=== PATIENT | male | born 1965 | race Caucasian/White ===

== ENCOUNTER 2017-10-16 12:30 | Day surgery (SDC) | payer MEDICARE, OTHER ==
[~2017-10-16 12:30] MED LIST: ? BP MED PO; ACET325 PO; ACET500 PO; ACID REDUCER 1150 MG PO; ALBU90OI61 INH; ANTIDEPRESSANT PO; BENZ100A PO; CEFU500; CEFUROXIME PO; CIPR500 PO; CYCL10 PO; Ceftin500 MG; DIPATR; DIPATR PO; FAMO20 PO; FERR325 PO; GUAI600T33 PO; HYDACE5 PO; HYDR1TAB94 PO; META800 PO; METO10 PO; METO25 PO; NITR100CA PO; OXYACE5T PO; PANT40 PO; PRED10 PO; PROBIOTIC1 EACH; PROM25 PO; Prilosec Otc20 MG PO; RANI150; RANI150 PO; RANITIDINE PO; SERT25 PO; TRAM50 PO; TRAMADOL PO; VALA500 PO
[2018-07-09] MEDS ORDERED: TRAM50 PO (14:44)
[2018-09-08] MEDS ORDERED: LEVFLO500 PO (17:05)
[2018-09-08] MEDS ORDERED: OXYC5 (17:23)
[2018-09-08] MEDS ORDERED: Lomotil Tablet1 EACH PO (17:24)
[2018-09-08] MEDS ORDERED: ACID REDUCER 1150 MG (17:24)
[2018-09-08] MEDS ORDERED: Prinivil10 MG PO (17:24)
== END 2017-10-16 12:35 | disposition home or self-care (01) ==
LOC: WOUND 12:30
DX: Z48.00 Encounter for change or removal of nonsurgical wound dressing (principal); L89.324 Pressure ulcer of left buttock, stage 4; L89.314 Pressure ulcer of right buttock, stage 4; Q05.9 Spina bifida, unspecified; F17.218 Nicotine dependence, cigarettes, with other nicotine-induced disorders; G82.22 Paraplegia, incomplete; E46 Unspecified protein-calorie malnutrition
CPT/HCPCS: G0463

== ENCOUNTER → 2017-11-25 | Outpatient (CLI) | payer MEDICARE, OTHER ==
[~2017-11-25] MED LIST changes: +ACID REDUCER 1150 MG; +LEVFLO500 PO; +Lomotil Tablet1 EACH PO; +OXYC5; +Prinivil10 MG PO
== END | disposition home or self-care (01) ==
LOC: LAB 10:15
DX: S31.809A Unspecified open wound of unspecified buttock, initial encounter (principal); S38.1XXA Crushing injury of abdomen, lower back, and pelvis, initial encounter
CPT/HCPCS: 87070; 87075; 87077; 87147; 87186; 87205

== ENCOUNTER 2018-10-01 07:34 | Day surgery (SDC) | payer MEDICARE, OTHER | END 2018-10-01 22:39 | disposition home or self-care (01) | LOC: WOUND 07:34 | DX: Z48.00 Encounter for change or removal of nonsurgical wound dressing (principal); L89.314 Pressure ulcer of right buttock, stage 4; L89.324 Pressure ulcer of left buttock, stage 4; Q05.9 Spina bifida, unspecified; G82.22 Paraplegia, incomplete | CPT/HCPCS: G0463 ==

== ENCOUNTER 2018-10-18 13:44 | Day surgery (SDC) | payer MEDICARE, OTHER | END 2018-10-18 22:49 | disposition home or self-care (01) | LOC: WOUND 13:44 | DX: L89.314 Pressure ulcer of right buttock, stage 4 (principal); L89.324 Pressure ulcer of left buttock, stage 4; Q05.9 Spina bifida, unspecified; G82.22 Paraplegia, incomplete; F17.218 Nicotine dependence, cigarettes, with other nicotine-induced disorders; I10 Essential (primary) hypertension; E78.5 Hyperlipidemia, unspecified ==

== ENCOUNTER 2018-10-25 13:32 | Day surgery (SDC) | payer MEDICARE, OTHER | END 2018-10-25 23:01 | disposition home or self-care (01) | LOC: WOUND 13:32 | DX: L89.314 Pressure ulcer of right buttock, stage 4 (principal); L89.324 Pressure ulcer of left buttock, stage 4; Q05.9 Spina bifida, unspecified; G82.22 Paraplegia, incomplete; F17.218 Nicotine dependence, cigarettes, with other nicotine-induced disorders; I10 Essential (primary) hypertension; E78.5 Hyperlipidemia, unspecified; J43.9 Emphysema, unspecified; G89.4 Chronic pain syndrome ==

== ENCOUNTER 2018-11-16 00:14 | Day surgery (SDC) | payer MEDICARE, OTHER | END 2018-11-16 22:46 | disposition home or self-care (01) | LOC: WOUND 00:14 | DX: L89.314 Pressure ulcer of right buttock, stage 4 (principal); L89.324 Pressure ulcer of left buttock, stage 4; Q05.9 Spina bifida, unspecified; G82.22 Paraplegia, incomplete; F17.218 Nicotine dependence, cigarettes, with other nicotine-induced disorders | CPT/HCPCS: G0463 ==

== ENCOUNTER 2018-12-08 00:16 | Day surgery (SDC) | payer MEDICARE, OTHER | END 2018-12-08 22:48 | disposition home or self-care (01) | LOC: WOUND 00:16 | DX: L89.314 Pressure ulcer of right buttock, stage 4 (principal); L89.324 Pressure ulcer of left buttock, stage 4; Q05.9 Spina bifida, unspecified; G82.22 Paraplegia, incomplete; F17.218 Nicotine dependence, cigarettes, with other nicotine-induced disorders; I10 Essential (primary) hypertension; E78.5 Hyperlipidemia, unspecified; G89.4 Chronic pain syndrome; G47.30 Sleep apnea, unspecified; M19.90 Unspecified osteoarthritis, unspecified site; G62.9 Polyneuropathy, unspecified; D64.9 Anemia, unspecified ==

== ENCOUNTER 2018-12-31 00:48 | Day surgery (SDC) | payer MEDICARE, OTHER | END 2018-12-31 23:07 | disposition home or self-care (01) | LOC: WOUND 00:48 | DX: L89.314 Pressure ulcer of right buttock, stage 4 (principal); L89.324 Pressure ulcer of left buttock, stage 4; I10 Essential (primary) hypertension; E78.5 Hyperlipidemia, unspecified; Q05.9 Spina bifida, unspecified; G82.22 Paraplegia, incomplete; F17.218 Nicotine dependence, cigarettes, with other nicotine-induced disorders ==

== ENCOUNTER 2019-02-08 10:55 | Day surgery (SDC) | payer MEDICARE, OTHER | END 2019-02-08 22:46 | disposition home or self-care (01) | LOC: WOUND 10:55 | DX: L89.314 Pressure ulcer of right buttock, stage 4 (principal); L89.324 Pressure ulcer of left buttock, stage 4; Q05.9 Spina bifida, unspecified; G82.22 Paraplegia, incomplete; I10 Essential (primary) hypertension; D64.9 Anemia, unspecified; G47.30 Sleep apnea, unspecified; F17.218 Nicotine dependence, cigarettes, with other nicotine-induced disorders ==

== ENCOUNTER 2019-03-07 11:02 | Day surgery (SDC) | payer MEDICARE, OTHER ==
[~2019-03-07 11:02] MED LIST changes: +OLME20 PO; +TELM40 PO
== END 2019-03-07 22:52 | disposition home or self-care (01) ==
LOC: WOUND 11:02
DX: L89.314 Pressure ulcer of right buttock, stage 4 (principal); L89.324 Pressure ulcer of left buttock, stage 4; Q05.9 Spina bifida, unspecified; G82.22 Paraplegia, incomplete; D64.9 Anemia, unspecified; G47.30 Sleep apnea, unspecified; I10 Essential (primary) hypertension; F17.218 Nicotine dependence, cigarettes, with other nicotine-induced disorders
CPT/HCPCS: G0463

== ENCOUNTER 2019-04-12 07:45 | Day surgery (SDC) | payer MEDICARE, OTHER | END 2019-04-12 23:10 | disposition home or self-care (01) | LOC: WOUND 07:45 | DX: L89.314 Pressure ulcer of right buttock, stage 4 (principal); L89.324 Pressure ulcer of left buttock, stage 4; Q05.9 Spina bifida, unspecified; G82.22 Paraplegia, incomplete; F17.218 Nicotine dependence, cigarettes, with other nicotine-induced disorders; D64.9 Anemia, unspecified; I10 Essential (primary) hypertension; M19.90 Unspecified osteoarthritis, unspecified site; G47.30 Sleep apnea, unspecified; K52.9 Noninfective gastroenteritis and colitis, unspecified; G62.9 Polyneuropathy, unspecified ==

== ENCOUNTER 2019-05-09 00:16 | Day surgery (SDC) | payer MEDICARE, OTHER | END 2019-05-09 22:51 | disposition home or self-care (01) | LOC: WOUND 00:16 | DX: L89.314 Pressure ulcer of right buttock, stage 4 (principal); L89.324 Pressure ulcer of left buttock, stage 4; F17.218 Nicotine dependence, cigarettes, with other nicotine-induced disorders; D72.829 Elevated white blood cell count, unspecified; R70.0 Elevated erythrocyte sedimentation rate; Q05.9 Spina bifida, unspecified; G82.22 Paraplegia, incomplete; I10 Essential (primary) hypertension; E78.5 Hyperlipidemia, unspecified; G89.4 Chronic pain syndrome | CPT/HCPCS: G0463 ==

== ENCOUNTER 2019-06-21 00:25 | Day surgery (SDC) | payer MEDICARE, OTHER | END 2019-06-21 22:49 | disposition home or self-care (01) | LOC: WOUND 00:25 | DX: L89.314 Pressure ulcer of right buttock, stage 4 (principal); L89.324 Pressure ulcer of left buttock, stage 4; F17.218 Nicotine dependence, cigarettes, with other nicotine-induced disorders; D72.829 Elevated white blood cell count, unspecified; R70.0 Elevated erythrocyte sedimentation rate; Q05.9 Spina bifida, unspecified; G82.22 Paraplegia, incomplete ==

== ENCOUNTER → 2019-07-01 | Outpatient (CLI) | payer MEDICARE, OTHER ==
[2019-07-01 20:02] LABS: BASOPHILS ABSOLUTE AUTO 0.08 K/mm3 (0.00-0.23); BASOPHILS PERCENT AUTO 1 % (0-2); EOSINOPHILS ABSOLUTE AUTO 0.08 K/mm3 (0.00-0.68); EOSINOPHILS PERCENT AUTO 1 % (0-6); Hematocrit 39.5 % (37.0-53.0); Hemoglobin 12.4 g/dL (13.5-17.5); IMMATURE GRAN ABSOLUTE AUTO 0.03 K/mm3 (0.00-0.10); IMMATURE GRAN PERCENT AUTO 0 % (0-1); LYMPHOCYTES ABSOLUTE AUTO 2.95 K/mm3 (0.84-5.20); LYMPHOCYTES PERCENT AUTO 27 % (21-46); MONOCYTES ABSOLUTE AUTO 0.61 K/mm3 (0.16-1.47); MONOCYTES PERCENT AUTO 6 % (4-13); Mean Corpuscular HGB 26.7 pg (26.0-34.0); Mean Corpuscular HGB Conc 31.4 g/dL (31.5-36.5); Mean Corpuscular Volume 85 fL (80-100); Mean Platelet Volume 11.2 fL (9.1-12.4); NEUTROPHILS ABSOLUTE AUTO 7.32 K/mm3 (1.96-9.15); NEUTROPHILS PERCENT AUTO 66 % (41-73); Platelet Count 274 K/mm3 (150-400); RDW Coefficient Variation 16.9 % (11.7-14.2); RDW Standard Deviation 52.4 fL (35.1-46.3); Red Blood Cell Count 4.65 M/mm3 (4.30-5.90); White Blood Cell Count 11.07 K/mm3 (4.00-11.30)
== END | disposition home or self-care (01) ==
LOC: LAB 10:45 → LAB SHORT 10:45
PROVIDERS: Nurse Practitioner Family
DX: L89.314 Pressure ulcer of right buttock, stage 4 (principal); D72.829 Elevated white blood cell count, unspecified; L89.324 Pressure ulcer of left buttock, stage 4; R70.0 Elevated erythrocyte sedimentation rate
CPT/HCPCS: 85025; 87070; 87075; 87205

== ENCOUNTER 2019-07-26 00:09 | Day surgery (SDC) | payer MEDICARE, OTHER | END 2019-07-26 22:42 | disposition home or self-care (01) | LOC: WOUND 00:09 | DX: I96 Gangrene, not elsewhere classified (principal); L89.314 Pressure ulcer of right buttock, stage 4; L89.324 Pressure ulcer of left buttock, stage 4; Q05.9 Spina bifida, unspecified; G82.22 Paraplegia, incomplete; D72.829 Elevated white blood cell count, unspecified; F17.218 Nicotine dependence, cigarettes, with other nicotine-induced disorders; I10 Essential (primary) hypertension; E78.5 Hyperlipidemia, unspecified; J43.9 Emphysema, unspecified; G89.4 Chronic pain syndrome; G47.30 Sleep apnea, unspecified; D64.9 Anemia, unspecified; M19.90 Unspecified osteoarthritis, unspecified site; G62.9 Polyneuropathy, unspecified; Z79.899 Other long term (current) drug therapy; Z79.51 Long term (current) use of inhaled steroids ==

== ENCOUNTER 2019-08-09 10:57 | Day surgery (SDC) | payer MEDICARE, OTHER | END 2019-08-09 22:43 | disposition home or self-care (01) | LOC: WOUND 10:57 | DX: L89.324 Pressure ulcer of left buttock, stage 4 (principal); L89.314 Pressure ulcer of right buttock, stage 4; F17.218 Nicotine dependence, cigarettes, with other nicotine-induced disorders; D72.829 Elevated white blood cell count, unspecified; R70.0 Elevated erythrocyte sedimentation rate; Q05.9 Spina bifida, unspecified; G82.22 Paraplegia, incomplete; I10 Essential (primary) hypertension; E78.5 Hyperlipidemia, unspecified; J43.9 Emphysema, unspecified; G89.4 Chronic pain syndrome; Z79.899 Other long term (current) drug therapy ==

== ENCOUNTER → 2019-08-16 | Outpatient (CLI) | payer MEDICARE, OTHER ==
[2019-08-16 13:28] LABS: Source, Urine Clean Catch
[2019-08-16 16:57] LABS: Bilirubin, Urine Neg (Neg); Blood, Urine 3+ (Neg); Glucose Qualitative, Urine Neg (Neg); Ketones, Urine 1+ (Neg); Leukocyte Esterase, Urine 3+ (Neg); Nitrite, Urine Neg (Neg); Protein, Urine 2+ (Neg); Urobilinogen, Urine NORM (Normal); pH, Urine 6.5 (5.0-8.0)
[2019-08-16 17:07] LABS: Appearance, Urine Cloudy (Clear); Color, Urine Pale Yellow (P-Yellow); White Blood Cells, Urine TNTC /hpf (0-5)
[2019-08-16 17:08] LABS: Bacteria Many /hpf; Squamous Epithelial Cells Not Seen /hpf (Few)
[2019-08-16 18:10] LABS: Thyroid Stimulating Hormone 0.672 uIU/mL (0.360-4.800)
== END | disposition home or self-care (01) ==
LOC: LAB SHORT 13:25 → OLS 13:25 → LAB FUT 08-11 15:10
PROVIDERS: Internal Medicine; Physician Assistant
DX: N39.0 Urinary tract infection, site not specified (principal); D50.9 Iron deficiency anemia, unspecified; D51.8 Other vitamin B12 deficiency anemias; R53.81 Other malaise
CPT/HCPCS: 36415; 81001; 82607; 82746; 84443; 87077; 87086; 87186

== ENCOUNTER 2019-08-29 14:04 | Day surgery (SDC) | payer MEDICARE, OTHER | END 2019-08-29 23:07 | disposition home or self-care (01) | LOC: WOUND 14:04 | DX: I96 Gangrene, not elsewhere classified (principal); L89.324 Pressure ulcer of left buttock, stage 4; L89.314 Pressure ulcer of right buttock, stage 4; G82.20 Paraplegia, unspecified; Q05.9 Spina bifida, unspecified; F17.210 Nicotine dependence, cigarettes, uncomplicated; I10 Essential (primary) hypertension; E78.5 Hyperlipidemia, unspecified; J43.9 Emphysema, unspecified; G89.4 Chronic pain syndrome; M19.90 Unspecified osteoarthritis, unspecified site; G62.9 Polyneuropathy, unspecified; Z96.0 Presence of urogenital implants; Z79.51 Long term (current) use of inhaled steroids; Z79.899 Other long term (current) drug therapy ==

== ENCOUNTER 2019-09-14 11:02 | Day surgery (SDC) | payer MEDICARE, OTHER | END 2019-09-14 22:50 | disposition home or self-care (01) | LOC: WOUND 11:02 | DX: L89.314 Pressure ulcer of right buttock, stage 4 (principal); L89.324 Pressure ulcer of left buttock, stage 4; F17.218 Nicotine dependence, cigarettes, with other nicotine-induced disorders; Q05.9 Spina bifida, unspecified; G82.22 Paraplegia, incomplete; I10 Essential (primary) hypertension; G89.4 Chronic pain syndrome; E78.5 Hyperlipidemia, unspecified; J43.9 Emphysema, unspecified; Z79.899 Other long term (current) drug therapy ==

== ENCOUNTER 2019-10-07 00:35 | Day surgery (SDC) | payer MEDICARE, OTHER | END 2019-10-07 23:24 | disposition home or self-care (01) | LOC: WOUND 00:35 | DX: L89.314 Pressure ulcer of right buttock, stage 4 (principal); L89.324 Pressure ulcer of left buttock, stage 4; Q05.9 Spina bifida, unspecified; G82.22 Paraplegia, incomplete; I10 Essential (primary) hypertension; E78.5 Hyperlipidemia, unspecified; J43.9 Emphysema, unspecified; G89.4 Chronic pain syndrome; F17.218 Nicotine dependence, cigarettes, with other nicotine-induced disorders; Z88.0 Allergy status to penicillin; Z88.2 Allergy status to sulfonamides; Z91.041 Radiographic dye allergy status; Z79.899 Other long term (current) drug therapy | CPT/HCPCS: G0463 ==

== ENCOUNTER 2019-11-04 02:21 | Day surgery (SDC) | payer MEDICARE, OTHER | END 2019-11-04 23:51 | disposition home or self-care (01) | LOC: WOUND 02:21 | DX: L89.314 Pressure ulcer of right buttock, stage 4 (principal); L89.324 Pressure ulcer of left buttock, stage 4; F17.218 Nicotine dependence, cigarettes, with other nicotine-induced disorders; Q05.9 Spina bifida, unspecified; G82.22 Paraplegia, incomplete; J43.9 Emphysema, unspecified; E78.5 Hyperlipidemia, unspecified; I10 Essential (primary) hypertension; G89.4 Chronic pain syndrome; Z79.899 Other long term (current) drug therapy | CPT/HCPCS: G0463 ==

== ENCOUNTER 2019-12-02 01:30 | Day surgery (SDC) | payer MEDICARE, OTHER | END 2019-12-02 23:23 | disposition home or self-care (01) | LOC: WOUND 01:30 | DX: L89.314 Pressure ulcer of right buttock, stage 4 (principal); L89.324 Pressure ulcer of left buttock, stage 4; F17.218 Nicotine dependence, cigarettes, with other nicotine-induced disorders; Q05.9 Spina bifida, unspecified; G82.22 Paraplegia, incomplete; I10 Essential (primary) hypertension; E78.5 Hyperlipidemia, unspecified; J43.9 Emphysema, unspecified; G89.4 Chronic pain syndrome; Z79.899 Other long term (current) drug therapy ==

== ENCOUNTER 2020-02-03 00:27 | Day surgery (SDC) | payer OTHER | END 2020-02-03 23:02 | disposition home or self-care (01) | LOC: WOUND 00:27 | DX: L89.314 Pressure ulcer of right buttock, stage 4 (principal); L89.324 Pressure ulcer of left buttock, stage 4; F17.218 Nicotine dependence, cigarettes, with other nicotine-induced disorders; Q05.9 Spina bifida, unspecified; G82.22 Paraplegia, incomplete; Z79.899 Other long term (current) drug therapy; I10 Essential (primary) hypertension; G47.30 Sleep apnea, unspecified ==

== ENCOUNTER 2020-08-21 13:53 | Inpatient (IN) | payer OTHER ==
[~2020-08-21] VITALS: Ht 162.6 cm; Wt 63.5 kg
[~2020-08-21 13:53] MED LIST changes: -ALBU90OI61 INH; -OXYC5
[2020-08-21 14:29] LABS: Source, Urine Clean Catch
[2020-08-21 14:53] LABS: BASOPHILS ABSOLUTE AUTO 0.06 K/mm3 (0.00-0.23); BASOPHILS PERCENT AUTO 1 % (0-2); EOSINOPHILS ABSOLUTE AUTO 0.05 K/mm3 (0.00-0.68); EOSINOPHILS PERCENT AUTO 0 % (0-6); Hematocrit 28.1 % (37.0-53.0); Hemoglobin 8.9 g/dL (13.5-17.5); IMMATURE GRAN ABSOLUTE AUTO 0.13 K/mm3 (0.00-0.10); IMMATURE GRAN PERCENT AUTO 1 % (0-1); LYMPHOCYTES PERCENT AUTO 20 % (21-46); MONOCYTES PERCENT AUTO 6 % (4-13); Mean Corpuscular HGB 27.1 pg (26.0-34.0); Mean Corpuscular HGB Conc 31.7 g/dL (31.5-36.5); Mean Corpuscular Volume 85 fL (80-100); Mean Platelet Volume 11.4 fL (9.1-12.4); NEUTROPHILS ABSOLUTE AUTO 8.68 K/mm3 (1.96-9.15); NEUTROPHILS PERCENT AUTO 72 % (41-73); Platelet Count 360 K/mm3 (150-400); RDW Coefficient Variation 16.7 % (11.7-14.2); RDW Standard Deviation 51.7 fL (35.1-46.3); Red Blood Cell Count 3.29 M/mm3 (4.30-5.90); White Blood Cell Count 12.02 K/mm3 (4.00-11.30)
[2020-08-21 15:20] LABS: Appearance, Urine Cloudy (Clear); Bilirubin, Urine Neg (Neg); Blood, Urine 3+ (Neg); Color, Urine Yellow (P-Yellow); Glucose Qualitative, Urine Neg (Neg); Ketones, Urine Neg (Neg); Leukocyte Esterase, Urine 3+ (Neg); Nitrite, Urine Pos (Neg); Protein, Urine 2+ (Neg); Specific Gravity, Urine 1.015 (1.003-1.022); Urobilinogen, Urine 1+ (Normal)
[2020-08-21 15:20] LABS: Alanine Aminotransfer (ALT/SGP 20 U/L (12-78); Albumin, Blood 2.5 g/dL (3.4-5.0); Albumin/Globulin Ratio 0.5 (0.8-1.8); Alk Phos 255 U/L (50-136); Anion Gap 9 mmol/L (6-16); Aspartate Aminotrans (AST/SGOT 20 U/L (12-37); Bilirubin, Total 0.8 mg/dL (0.1-1.0); Blood Urea Nitrogen 22 mg/dL (8-24); Bun/Creatinine Ratio 18.2 (12.0-20.0); CO2, Blood 20 mmol/L (21-32); Calcium, Blood 9.3 mg/dL (8.5-10.1); Chloride, Blood 111 mmol/L (98-108); Creatinine, Blood 1.21 mg/dL (0.60-1.20); Glomerular Filtration Rate >60 (60-); Glucose, Blood 102 mg/dL (70-99); Potassium, Blood 3.9 mmol/L (3.5-5.5); Sodium, Blood 140 mmol/L (136-145); Total Protein, Blood 7.5 g/dL (6.4-8.2); Troponin I <0.015 ng/mL (0.000-0.040)
[2020-08-21 15:45] LABS: Mucus Mod (0-Heavy)
[2020-08-21 15:46] LABS: Triple Phosphate Crystals Mod /hpf
[2020-08-21 15:47] LABS: Bacteria Many /hpf; Squamous Epithelial Cells Rare /hpf (Few)
[2020-08-21] MEDS ORDERED: ALBU2.5V5 NEB (20:38)
[2020-08-21] MEDS ORDERED: TRAM50 PO (20:38)
[2020-08-21] MEDS ORDERED: OXYC5 PO (20:39)
[2020-08-21] MEDS ORDERED: TIOT18 INH (20:40)
[2020-08-21 22:19] LABS: CPK Creatine Kinase 31 U/L (39-308); Troponin I <0.015 ng/mL (0.000-0.040)
[2020-08-21 23:16] LABS: Influenza A, PCR Negative (NEGATIVE); Influenza B, PCR Negative (NEGATIVE); Resp Syncytial Virus, PCR Negative (NEGATIVE); SARS-Cov-2 (COVID-19) PCR, MMC Negative (NEGATIVE)
--- NOTE | 2020-08-21 23:30 | NUR ---
RECEIVED REPORT FROM ALBERT VELOZ RN. PT TRANSPORTED TO MEDICAL FLOOR VIA GURNEY, SELF-TRANSFERRED TO BED WITH SBA. PT ORIENTED TO ROOM, UNIT. VS TAKEN. PT IN NO ACUTE DISTRESS, C/O CP, BACK PAIN, DESCRIBES IT "BEING ON FIRE." PT MEDICATED FOR PAIN PER EMAR. PT SITUATED IN ROOM. CALL LIGHT, POSSESSIONS IN REACH, BED IN LOW POSITION WITH ALARMS ON. WCTM.
--- NOTE | 2020-08-22 01:45 | NUR ---
THIS RN NOTIFIED OF ORDER FOR PT TO RECEIVE CT SCAN. THIS RN AND [employer] ATTENDANT TRANSPORTED PT TO CT SCAN, PT REPORTED ALLERGY TO IODINE, UNSURE OF REACTION OR ITS SEVERITY. CALLED DR. BATRES TO INFORM OF FINDINGS, STATED TO THIS RN TO MEDICATE PT AFTER PROCEDURE. ASA HODGES, HAND SCREEN PRINTER, REQUESTING TO SPEAK TO DR. BATRES REGARDING PT ALLERGY, AND STATED HE WOULD NOT DO THE SCAN ON PT D/T REPORTED ALLERGY, UNLESS PT WAS PRE-MEDICATED. SPOKE TO GISEL REGARDING ALTERNATIVE TEST OPTIONS, SUCH A V/Q SCAN. GISEL ENTERING ORDERS INTO ULURU. CONTINUE TO MONITOR.
--- NOTE | 2020-08-22 03:04 | NUR ---
LATE-ENTRY- PT PRE-MEDICATED AT [address] SCAN WITH CONTRAST. THIS RN SPEAKING TO CLINICAL COORDINATOR, BARBIE FAUSTIN REGARDING PREPARATION FOR PTS WHO HAVE HX ALLERGY TO IODINE. THIS RN THEN SPOKE TO ASA HODGES EpiEP, REGARDING RECOMMENDATION FOR PREPARATION PRIOR TO PROCEDURE. RECOMMENDED PRE-MEDICATING 7-13 HOURS PRIOR, PER RADIOLOGIST RECOMMENDATION. THIS RN SPOKE TO DR. BATRES REGARDING CONVERSATION, ORDERS RECEIVED TO PERFORM CT SCAN NOW. THIS RN INFORMING ASA HODGES EpiEP, REGARDING ORDERS FROM DR. BATRES. STATED HE'D PERFORM CT SCAN BUT WOULD ALSO SPEAK TO RADIOLOGIST REGARDING PROCEDURE FOR PT'S WITH REPORTED IODINE ALLERGY.
--- NOTE | 2020-08-22 03:30 | NUR ---
PT TRANSPORTED TO CT, NO S/S REACTION NOTED FROM IV CONTRAST DYE. TOLERATED WELL.
[2020-08-22 05:24] LABS: BASOPHILS ABSOLUTE AUTO 0.04 K/mm3 (0.00-0.23); BASOPHILS PERCENT AUTO 0 % (0-2); EOSINOPHILS ABSOLUTE AUTO 0.05 K/mm3 (0.00-0.68); EOSINOPHILS PERCENT AUTO 1 % (0-6); Hematocrit 22.5 % (37.0-53.0); Hemoglobin 7.1 g/dL (13.5-17.5); IMMATURE GRAN ABSOLUTE AUTO 0.21 K/mm3 (0.00-0.10); IMMATURE GRAN PERCENT AUTO 2 % (0-1); LYMPHOCYTES ABSOLUTE AUTO 1.29 K/mm3 (0.84-5.20); LYMPHOCYTES PERCENT AUTO 12 % (21-46); MONOCYTES ABSOLUTE AUTO 0.32 K/mm3 (0.16-1.47); MONOCYTES PERCENT AUTO 3 % (4-13); Mean Corpuscular HGB 27.7 pg (26.0-34.0); Mean Corpuscular HGB Conc 31.6 g/dL (31.5-36.5); Mean Corpuscular Volume 88 fL (80-100); Mean Platelet Volume 11.6 fL (9.1-12.4); NEUTROPHILS ABSOLUTE AUTO 8.62 K/mm3 (1.96-9.15); NEUTROPHILS PERCENT AUTO 82 % (41-73); Platelet Count 295 K/mm3 (150-400); RDW Coefficient Variation 16.9 % (11.7-14.2); RDW Standard Deviation 54.4 fL (35.1-46.3); Red Blood Cell Count 2.56 M/mm3 (4.30-5.90); White Blood Cell Count 10.53 K/mm3 (4.00-11.30)
[2020-08-22 05:42] LABS: Alanine Aminotransfer (ALT/SGP 18 U/L (12-78); Albumin, Blood 2.1 g/dL (3.4-5.0); Albumin/Globulin Ratio 0.5 (0.8-1.8); Alk Phos 226 U/L (50-136); Anion Gap 8 mmol/L (6-16); Aspartate Aminotrans (AST/SGOT 18 U/L (12-37); Bilirubin, Total 0.4 mg/dL (0.1-1.0); Blood Urea Nitrogen 26 mg/dL (8-24); Bun/Creatinine Ratio 20.5 (12.0-20.0); CO2, Blood 19 mmol/L (21-32); CPK Creatine Kinase 34 U/L (39-308); Calcium, Blood 8.3 mg/dL (8.5-10.1); Chloride, Blood 110 mmol/L (98-108); Creatinine, Blood 1.27 mg/dL (0.60-1.20); Globulin, Blood 4.2 g/dL (2.2-4.0); Glomerular Filtration Rate >60 (60-); Glucose, Blood 114 mg/dL (70-99); Potassium, Blood 4.3 mmol/L (3.5-5.5); Sodium, Blood 137 mmol/L (136-145); Total Protein, Blood 6.3 g/dL (6.4-8.2); Troponin I <0.015 ng/mL (0.000-0.040)
--- NOTE | 2020-08-22 06:30 | NUR ---
SHIFT SUMMARY PT ASLEEP, FIANCEE AT THE BEDSIDE. PT RESTING COMFORTABLY AT THIS TIME, NO S/S ACUTE DISTRESS NOTED, RESPS E/U. DENIES CP. NO S/S ADVERSE REACTION FROM IV CONTRAST DYE. VS REVIEWED, 02 SATS STABLE. MEDICATED FOR PAIN WITH MEDS PER EMAR, WITH EFFECTIVE RELIEF. SPOKE TO GISEL REGARDING PT'S H&H THIS AM, NO NEW ORDERS RECEIVED. CONTINUE TO MONITOR AT THIS TIME. PT DENIES NEEDS. CALL LIGHT, POSSESSIONS IN REACH, BED IN LOW POSITION WITH ALARMS ON. WCTM, REPORT OFF TO ONCOMING RN.
[2020-08-22 14:40] LABS: Percent Saturation 21.2 % (20.0-50.0)
--- NOTE | 2020-08-22 17:40 | NUR ---
PATIENT A/OX4, CALM AND COOPERATIVE WITH CARE. HX OF SPINA BIFIDA, BUT IS ABLE TO REPOSITION SELF IN BED AND STAND WITH ASSIST. PROTONIX GTT CONTINUES. PATIENT TOLERATING REGULAR DIET. SMALL BROWN STOOL THIS AM. PATIENT HAS 2 LARGE TUNNELING WOUNDS TO BUTTOCKS, PICS ON CHART. CONSULTS TODAY BY DR. KEY FOR GI AND DR. VAZQUEZ FOR PULMONOLOGY. DR VAZQUEZ AT BEDSIDE THIS EVENING, PATIENT DOES NOT WANT BRONCHOSCOPY TOMORROW IT IS THANKSGIVING. PULMONOLOGY WILL FOLLOW UP TOMORROW FOR A FUTURE DATE TO EVALUATE LUNG MASS.
[2020-08-23 04:44] LABS: BASOPHILS ABSOLUTE AUTO 0.04 K/mm3 (0.00-0.23); BASOPHILS PERCENT AUTO 0 % (0-2); EOSINOPHILS ABSOLUTE AUTO 0.03 K/mm3 (0.00-0.68); EOSINOPHILS PERCENT AUTO 0 % (0-6); Hematocrit 23.9 % (37.0-53.0); Hemoglobin 7.8 g/dL (13.5-17.5); IMMATURE GRAN ABSOLUTE AUTO 0.36 K/mm3 (0.00-0.10); IMMATURE GRAN PERCENT AUTO 2 % (0-1); LYMPHOCYTES ABSOLUTE AUTO 3.44 K/mm3 (0.84-5.20); LYMPHOCYTES PERCENT AUTO 22 % (21-46); MONOCYTES ABSOLUTE AUTO 1.18 K/mm3 (0.16-1.47); MONOCYTES PERCENT AUTO 7 % (4-13); Mean Corpuscular HGB 27.7 pg (26.0-34.0); Mean Corpuscular HGB Conc 32.6 g/dL (31.5-36.5); Mean Corpuscular Volume 85 fL (80-100); Mean Platelet Volume 11.3 fL (9.1-12.4); NEUTROPHILS ABSOLUTE AUTO 10.94 K/mm3 (1.96-9.15); NEUTROPHILS PERCENT AUTO 68 % (41-73); Platelet Count 282 K/mm3 (150-400); RDW Coefficient Variation 18.2 % (11.7-14.2); RDW Standard Deviation 55.2 fL (35.1-46.3); Red Blood Cell Count 2.82 M/mm3 (4.30-5.90); White Blood Cell Count 15.99 K/mm3 (4.00-11.30)
[2020-08-23 05:19] LABS: Alanine Aminotransfer (ALT/SGP 15 U/L (12-78); Albumin, Blood 2.1 g/dL (3.4-5.0); Albumin/Globulin Ratio 0.5 (0.8-1.8); Alk Phos 211 U/L (50-136); Anion Gap 8 mmol/L (6-16); Aspartate Aminotrans (AST/SGOT 13 U/L (12-37); Bilirubin, Total 0.4 mg/dL (0.1-1.0); Blood Urea Nitrogen 28 mg/dL (8-24); Bun/Creatinine Ratio 21.9 (12.0-20.0); CO2, Blood 20 mmol/L (21-32); Calcium, Blood 8.9 mg/dL (8.5-10.1); Chloride, Blood 112 mmol/L (98-108); Creatinine, Blood 1.28 mg/dL (0.60-1.20); Globulin, Blood 4.1 g/dL (2.2-4.0); Glomerular Filtration Rate >60 (60-); Glucose, Blood 114 mg/dL (70-99); Magnesium, Blood 2.4 mg/dL (1.6-2.4); Potassium, Blood 4.2 mmol/L (3.5-5.5); Sodium, Blood 140 mmol/L (136-145); Total Protein, Blood 6.2 g/dL (6.4-8.2)
--- NOTE | 2020-08-23 06:44 | NUR ---
NURSE CARE MANAGER SUMMARY PT AAOX4 AND ABLE TO MAKE NEEDS KNOWN. BED REST DUE TO HX OF SPINABIFIDA WITH LITTLE TO NO USE OF BOTH LEGS. PT VERY EMOTIONAL AT START OF SHIFT DUE TO BEING TOLD THE RESULTS OF HIS CT SCAN THAT REVEALED POSS LUNG MASS WITH METS. PT MEDICATED FOR BACK PAIN MULTIPLE TIMES THROUGH THE NIGHT WITH FENTANYL WITH SOME RELIEF BUT PT REPORTS BACK SPASMS THAT ARE NEW FOR HIM. SPOKE WITH DR BATRES AND RECIEVED ORDER FOR IV VALIUM WHICH DID HELP WITH THE SPASMS FOR A WHILE. ALSO ASSISTED PT WITH USE OF K PAD ON BACK WHICH HE STATED DID HELP A BIT. PT MOSTLY PLEASANT BUT CAN GET VERY FRUSTRATED AND IRRITABLE AT TIMES. PT STATES "THATS JUST HOW I AM". VSS, WILL CONTINUE TO MONITOR.
--- NOTE | 2020-08-23 19:51 | NUR ---
END OF SHIFT SUMMARY: PATIENT REPORTED HIGH LEVELS OF PAIN THROUGHOUT THE SHIFT. PATIENT MEDICATED PER PRNS, UTILIZED HEAT PAD, AND WAS UP TO HIS WC TO ASSIST WITH ALLEVIATION OF PAIN. PATIENT COMPLAINED OF DIFFICULTY GETTING SPUTUM OUT. ENCOURAGED INCREASE IN PO FLUIDS OTHER THAN COFFEE. DISCUSSED COUGH WITH DR. FELIX. NEW ORDERS PLACED. FLUTTER VALVE AT BEDSIDE. PATIENT ABLE TO DEMONSTRATE USE OF. PATIENT SEEMS TO BE WILLING TO HAVE THE BRONCHOSCOPY TOMORROW. NO SIGNS OR SYMPTOMS OF ACUTE GI BLEED (NO NAUSEA/VOMITING, NO DARK STOOLS). PATIENT TOLERATING FOOD AND FLUIDS WITHOUT NAUSEA OR INCREASED DISCOMFORT. PATIENT IRRITABLE AT TIMES RELATED TO RECENT DIAGNOSIS. PROVIDED SUPPORT AND ENCOURAGEMENT.
[2020-08-24 05:31] LABS: BASOPHILS ABSOLUTE AUTO 0.06 K/mm3 (0.00-0.23); BASOPHILS PERCENT AUTO 1 % (0-2); EOSINOPHILS ABSOLUTE AUTO 0.19 K/mm3 (0.00-0.68); EOSINOPHILS PERCENT AUTO 2 % (0-6); Hematocrit 24.3 % (37.0-53.0); Hemoglobin 7.8 g/dL (13.5-17.5); IMMATURE GRAN ABSOLUTE AUTO 0.35 K/mm3 (0.00-0.10); IMMATURE GRAN PERCENT AUTO 3 % (0-1); LYMPHOCYTES ABSOLUTE AUTO 3.06 K/mm3 (0.84-5.20); LYMPHOCYTES PERCENT AUTO 24 % (21-46); MONOCYTES ABSOLUTE AUTO 0.87 K/mm3 (0.16-1.47); MONOCYTES PERCENT AUTO 7 % (4-13); Mean Corpuscular HGB 27.3 pg (26.0-34.0); Mean Corpuscular HGB Conc 32.1 g/dL (31.5-36.5); Mean Corpuscular Volume 85 fL (80-100); Mean Platelet Volume 11.1 fL (9.1-12.4); NEUTROPHILS ABSOLUTE AUTO 8.03 K/mm3 (1.96-9.15); NEUTROPHILS PERCENT AUTO 64 % (41-73); NRBC ABSOLUTE 0.02 K/mm3 (0.00-0.02); NRBC Auto 0.2 /100 WBC (0.0-0.2); Platelet Count 291 K/mm3 (150-400); RDW Coefficient Variation 18.3 % (11.7-14.2); RDW Standard Deviation 55.6 fL (35.1-46.3); Red Blood Cell Count 2.86 M/mm3 (4.30-5.90); White Blood Cell Count 12.56 K/mm3 (4.00-11.30)
[2020-08-24 05:54] LABS: Bun/Creatinine Ratio 21.6 (12.0-20.0); Calcium, Blood 8.6 mg/dL (8.5-10.1); Creatinine, Blood 1.39 mg/dL (0.60-1.20); Potassium, Blood 4.4 mmol/L (3.5-5.5)
--- NOTE | 2020-08-24 07:53 | NUR ---
08/24/20 0530 MEDICATED FOR BACK/ABDOMINAL DISCOMFORT PER NOV. NPO AT 0500 FOR PROCEDURE AT 1:30 PM TODAY. PT AWARE. PT CAN BE RUDE AT TIMES TOWARDS STAFF. UPSET WITH FREQUENT INTERUPTIONS AND ANGRY ABOUT NEW DX OF LUNG CANCER. VITALS STABLE. SELF CARES FOR UROSTOMY AND BAGS.
--- NOTE | 2020-08-24 08:27 | NUR ---
PT SLEEPING WAKES TO VERBAL STIMULI OFFERED PO TYLENOL PT REPORTED PAIN R/T INC PRODUCTIVE COUGH PT STATED THAT ALOT OF IT HE SWALLOWS PT SCHED FOR BROCH TODAY HELPED TO REPOSISTION TO HIS L SIDE PO MEDS GIVEN WITH SIP H2O
--- NOTE | 2020-08-24 10:39 | NUR ---
pain 7/10 50 mcg fent given
--- NOTE | 2020-08-24 11:41 | NUR ---
dr haque by to see pt req paramjit dm with machelle for pleuritic cp
--- NOTE | 2020-08-24 12:00 | NUR ---
lunch on hold npo for bronch procedure
--- NOTE | 2020-08-24 12:59 | NUR ---
dr haque by to see pt again pt also transported via [facility] for bronch
--- NOTE | 2020-08-24 14:04 | NUR ---
08/24/20 1404 TIM OROZCO History, Chart, Medications and Allergies reviewed before start of procedure. 3-LEAD EKG REVIEWED WITH PHYSICIAN PRIOR TO START OF PROCEDURE. O2 VIA N/C INTACT THROUGHOUT SEDATION/PROCEDURE. MONITOR INTACT WITH CONTINUOUS PULSE OXIMETRY AND INTERMITTENT BP. MODERATE SEDATION PER DR. DILLARD.
--- NOTE | 2020-08-24 14:49 | NUR ---
pt arrived back to room 364 from day surg pt is s/p bronch pt has bilat carloz ching red blood to nares pt can eat at 1615 per pulmonology biox per ra 95-97% pt's s/o at bedside
--- NOTE | 2020-08-24 16:20 | NUR ---
pt having no difficulty with swallowing post procedure meds given as sched
--- NOTE | 2020-08-24 17:43 | NUR ---
pt stated that the cough medications helped just some pressure vs pain from the cough pt eating dinner still no bleeding from the nares
[2020-08-25 04:58] LABS: Hematocrit 23.7 % (37.0-53.0); Hemoglobin 7.5 g/dL (13.5-17.5); Mean Corpuscular HGB Conc 31.6 g/dL (31.5-36.5); Mean Corpuscular Volume 85 fL (80-100); Mean Platelet Volume 11.7 fL (9.1-12.4); NRBC ABSOLUTE 0.02 K/mm3 (0.00-0.02); NRBC Auto 0.2 /100 WBC (0.0-0.2); Platelet Count 282 K/mm3 (150-400); RDW Coefficient Variation 18.2 % (11.7-14.2); Red Blood Cell Count 2.78 M/mm3 (4.30-5.90); White Blood Cell Count 11.91 K/mm3 (4.00-11.30)
[2020-08-25 05:17] LABS: Alanine Aminotransfer (ALT/SGP 17 U/L (12-78); Albumin, Blood 2.1 g/dL (3.4-5.0); Albumin/Globulin Ratio 0.5 (0.8-1.8); Alk Phos 239 U/L (50-136); Anion Gap 6 mmol/L (6-16); Aspartate Aminotrans (AST/SGOT 21 U/L (12-37); Bilirubin, Total 0.5 mg/dL (0.1-1.0); Blood Urea Nitrogen 30 mg/dL (8-24); Bun/Creatinine Ratio 24.8 (12.0-20.0); CO2, Blood 24 mmol/L (21-32); Calcium, Blood 8.8 mg/dL (8.5-10.1); Chloride, Blood 107 mmol/L (98-108); Creatinine, Blood 1.21 mg/dL (0.60-1.20); Globulin, Blood 4.3 g/dL (2.2-4.0); Glomerular Filtration Rate >60 (60-); Glucose, Blood 104 mg/dL (70-99); Magnesium, Blood 2.3 mg/dL (1.6-2.4); Potassium, Blood 4.5 mmol/L (3.5-5.5); Sodium, Blood 137 mmol/L (136-145); Total Protein, Blood 6.4 g/dL (6.4-8.2)
--- NOTE | 2020-08-25 08:42 | NUR ---
SUMMARY PT PAINFUL TONIGHT. VALIUM REPORTED HELPING TO SLEEP. PT RESISTENT TO PROACTIVE SELF CARE DUE TO DX OF CA. STATES DOESNT CARE TO BOTHER PRESSURE ULCERS HAVE NEVER HEALED OVER LAST 10 YRS ALTHOUGH HE ALSO REPORTS BEING NON COMPLIANT, AND VERB WHY BOTHER WITH EVERYTHING DUE TO DX OF CA WITH MOST LIKELY METS. ENC AND SUPPORT GIVEN. PT SMILES AT TIMES AND OTHER TIMES SHARP WORDED WITH STAFF.
--- NOTE | 2020-08-25 17:02 | NUR ---
SHIFT SUMMARY PAIN HAS BEEN DIFFICULT TO MANAGED. FENTANYL PATCH WAS INCREASED BY DR. FELIX, PT HAS ALSO BEEN GETTING IV FENTANYL. PT COMPLAINS OF BACK, L SHOULDER AND CHEST PAIN- PT REPORTS HE HAS BEEN HAVING THIS PAIN X1 MONTH. PT IS BEING FOLLOWED BY DR. KEY AND PULMONOLOGY. PT HAS BEEN ABLE TO REPOSITION IN BED WITH SOME ASSISTANCE. PT PROVIDES CARE FOR UROSTOMY. VSS. WILL MONITOR UNTIL REPORT TO ONCOMING RN.
[2020-08-26 05:28] LABS: Hematocrit 24.7 % (37.0-53.0); Hemoglobin 7.6 g/dL (13.5-17.5); Mean Corpuscular HGB 26.7 pg (26.0-34.0); Mean Corpuscular HGB Conc 30.8 g/dL (31.5-36.5); Mean Corpuscular Volume 87 fL (80-100); Mean Platelet Volume 11.6 fL (9.1-12.4); NRBC ABSOLUTE 0.02 K/mm3 (0.00-0.02); NRBC Auto 0.2 /100 WBC (0.0-0.2); Platelet Count 270 K/mm3 (150-400); RDW Coefficient Variation 18.5 % (11.7-14.2); RDW Standard Deviation 58.1 fL (35.1-46.3); Red Blood Cell Count 2.85 M/mm3 (4.30-5.90); White Blood Cell Count 13.02 K/mm3 (4.00-11.30)
[2020-08-26 05:43] LABS: Bun/Creatinine Ratio 23.6 (12.0-20.0); Calcium, Blood 8.9 mg/dL (8.5-10.1); Creatinine, Blood 1.4 mg/dL (0.60-1.20); Potassium, Blood 4.3 mmol/L (3.5-5.5)
--- NOTE | 2020-08-26 08:06 | NUR ---
SUMMARY PT VERB SLEPT BETTER LAST NIGHT.VERB CODEINE IN ROBITUSSIN DM HELPED WITH COUGH AND PAIN.
--- NOTE | 2020-08-26 15:14 | NUR ---
Attempted to see pt. He was sound asleep. Will return later today.
--- NOTE | 2020-08-26 17:26 | NUR ---
INITIAL [facility] CARE VISIT - Introduced myself to pt. He was receptive to visit despite obvious severe, sharp L shoulder, scapula and upper chest pain with any movement of that area of body. Pt was admitted with what he thought to be a pneumonia but Drs found left lung mass and evidence of bony mets to left scapula and shoulder area. Pt is tearful and verbalizing grief and anger at times t/o our visit. He stated he was not 100% sure he had cancer and if he did he didn't want to do chemotherapy "unless I have to". He is processing and struggling with the reality of this new dx. He does not appear to have good insight or understanding of his medical issues at this time and would benefit from ongoing discussions and repeated information to help him process. He has had bx done and is awaiting results of that. Pt has PMH of spinabifida with mobility impairment (uses WC) & altered GI fx with an ostomy on R abdomen. He states he has slept on his left side for 50+ years and cannot do that now due to severe L sided pain, previously described. He is a smoker. When asked if he had family locally he said, "yes, but they don't give a shit about me". He has [facility] coming to his home, where he lives alone, approx three hours per day. His [employer] medical case worker is Ariane, who is aware of his current hospitalization but when pt notified her of his admission he did not know about the left chest/lung lesions found. He plans to call her tomorrow with an update. He inquired about completing a will tearfully. He states he doesn't know anything about that. I assured him, whe could obtain a simple [place] Will form for him to review and complete if he would like to and that there was a notary available to witness it if he needed that while he was here. Pt is not able to discuss how aggressive he would like to be with tx until he is clear on what his full situation/dx and involvement/stage is. I did touch on code status with him and he verbalized appreciation of that discussion and information. He would like to talk about that further after bx results and tx options known. Pt began to display more nonverbal indicators of severe pain with wincing, writhing, crying out w/ any slight movement & conversation. I contacted his RN for assist with administering analgesics per eMAR. Very gentle laying on of hands to front and back of left chest/shoulder area applied. Pt verbalized that this was appreciated. Waited with pt while RN obtained medications per Pykimberlys. Planned with pt for someone from [facility] to see him daily. VM left for Infertility Medical Assistant to request a visit tomorrow also. VM left for CM for follow up and assist with dc planning and gathering resources available also. Pt may need increase in frequency of PO pain medications for improved s/s management. Currently Roxicodone is ordered q6 hours. Plan to cont daily visits for advanced care planning, s/s management and support. It will be important for pt to identify a surrogate decision maker for himself and clarify if he desires invasive advanced life support measures going forward, when he has complete information on his current dx and understands it well.
--- NOTE | 2020-08-26 20:49 | NUR ---
SUMM- PT A/OX4, DIRECTS HIS OWN CARE. AT TIMES PT IS ABRUBT/DIRECT AND VOICEC CONCERN OF NEW CANCER DIAGNOSIS,ALMOST THOUGH HE'S AFRAID, BUT CORERS IT IN ANGER. PT IS COOPERATIVE. HAVING SEVERE PAIN IN L SHOULDER. MULT ATTEMPT TO REPOSITION TO AID IN COMFORT. STARTED OXYCODONE WHICH PT STATES IF EFFECTIVE. HAS FENT PATCH PRESENT ON L SHOULDER AREA. FENT GAVE PT SHORT LIVED RELEIF THIS AM BUT NOT LONG LASTING. PT TOLERATING FOOD AND FLUID. MEPILEX INTACT TO GLUT CHRONIC ULCERS. PT'S LUNGS COARSE, SCATTERED RHONCHI, AND STATES INABILLITY TO CLEAR EFFECTIVELY. PT USING PICKLE OCCASIONALLY. GIVEN GUIFENISEN AND ENC PT TO DRINK WATER, BUT REFUSES AND WILL ONLY DRINK COFFEE. PT OFFERED EGGCRATE TO PROTECT AGAINST PRESSURE, PT REFUSED, STATING HE DOESN'T WANT TO GET STUCK IN THE EGGCRATE. REPORTED TO EAGLE BROOKS.
--- NOTE | 2020-08-27 06:09 | NUR ---
SHIFT SUMMARY PT PAIN POORLY MANAGED PER EMAR DURING SHIFT, HE WAS ABLE TO GET SMALL AMOUNTS OF SLEEP BUT THE PAIN RELIEF DID NOT LAST LONG. REQUIRED 50MCG OF FENTANYL DURING SHIFT PER EMAR. PT REQUIRES MODERATE ASSIST WITH REPOSITIONING RELATED TO LEFT SHOULDER PAIN. TOLERATES PO WELL AND REPORTS SMALL AMOUNT OF NAUSEA FROM PAIN. PLAN WILL BE TO CONTINUE FIND PAIN MANAGEMENT DURING SHIFT. UROSTOMY PATENT AND DRAINING. PT CALLING FOR HELP TO EMPTY HE IS HAVING DIFFICULTY USING LEFT ARM.
--- NOTE | 2020-08-27 14:53 | NUR ---
Review of patients pain managment needs with nursing. Will follow up with symtom review and plan of care.
--- NOTE | 2020-08-27 18:18 | NUR ---
Pt wanting infromation on Cancer care, Resources available how to complete a will, advance directive and polst. He is labile and anxious in his conversation and processing his dialgnosis and converstions with the physicians. Pt is interested in speaking with doctor Dunn this week to help him make a decision. Carefully reviewed what chemo, immunosuppressive therapy and radiation treatmetn look like logistically. We reviewed questions to adk oncologist. And reviewed hospice if that becomes necessary. Most of the conversation facilitated his expressions of fear and grief, will have chaplian follow up and reasses his symtom managment.
--- NOTE | 2020-08-27 18:44 | NUR ---
SHIFT SUMMARY PT A/O X4 AND ANXIOUS. C/O OF 07/07 PAIN IN HIS L SHOULDER AND HAS VERY LIMITED MOBILITY ON THAT SIDE DUE TO PAIN. LUNG MASS WITH POSSIBLE CANCER AND BONE METS. MEDICATED PER EMR. PLANS TO GO HOME TOMORROW. CONSULTED WITH PALLLIATIVE CARE AND GIVEN INFORMATION ON ADVANCED DIRECTIVES AND CANCER CARE. VSS; CALL LIGHT IN REACH.
--- NOTE | 2020-08-27 20:53 | NUR ---
ASSUMED CARE. LEONIDES REPORTS HIGH LEVEL OF PAIN TO THE LEFT SHOULDER. STATES IT IS TO PAINFUL TO EVEN MOVE. HE MOVES IN SLOW MOVEMENTS AND GRIMACES WHEN THE LEFT SHOULDER GETS TOUCH. IF FEARFUL ON WHAT HE IS GOING TO DO AT HOME, HE ONLY HAS A PARTTIME CAREGIVER. HE USUALLY IS ABLE TO DO ALOT FOR HIMSELF BUT IS FEARFUL OF THE PAIN. CURRENTLY TAKING OXYCODONE, FENTANYL PATCH, LIDOCAINE PATCH, AND IF NEEDED IV FENTANYL. HE PLANS ON TRYING TO STAY OFF THAT AND STAY ON OXYCODONE. ADMINISTER MEDS. REPOSITIONED UP IN BED SLOWLY. DENIED ANY OTHER NEEDS AT THIS TIME. CALL LIGHT IN REACH.
[2020-08-28 05:27] LABS: Anion Gap 7 mmol/L (6-16); Blood Urea Nitrogen 39 mg/dL (8-24); CO2, Blood 24 mmol/L (21-32); Calcium, Blood 9.3 mg/dL (8.5-10.1); Chloride, Blood 104 mmol/L (98-108); Creatinine, Blood 1.26 mg/dL (0.60-1.20); Glomerular Filtration Rate >60 (60-); Glucose, Blood 110 mg/dL (70-99); Phosphorus, Blood 4.6 mg/dL (2.5-4.9); Potassium, Blood 4.7 mmol/L (3.5-5.5); Sodium, Blood 135 mmol/L (136-145)
--- NOTE | 2020-08-28 06:36 | NUR ---
SHIFT SUMMARY: AOX3, COOPERATIVE. VERY PAINFUL TONIGHT IN THE LEFT SHOULDER. PAIN HAS AVERAGED 10/10 BEFORE OXYCODONE AND AFTER AROUND 7/10 DEPENDING ON MOVEMENT. HE HAD A HARD TIME EVEN MOVING THE LEFT ARM WITHOUT IT THROBBING. AT REST IT SEEMED TO DO BETTER BUT ANY PRESSURE CAUSED INCREASE IN PAIN. OXYCODONE WAS GIVEN AROUND THE CLOCK, HE WAS ABLE TO TOLERATE THE PAIN FOR THE MOST PART AND NOT USE THE FENTANYL. DISCUSSED PAIN MANAGMENT AT HOME, WHICH COULD INCLUDE ADDING DILUDID 2-4MG EVERY 4 HOURS, USING THE OXYCODONE BREAKTHROUGH EVERY 6 HOURS, AND LIDOCAINE PATCH. HE DIDN'T FEEL THAT THE FENTANYL PATCH WAS REALLY HELPING HIM. ENCOURAGED HIM TO TALK TO PALLATIVE CARE. BP WAS SLIGHTLY ELEVATED THIS AM DUE TO PAIN INCREASE AFTER MOVING. EXPECTED THIS WILL GO DOWN THIS AM. UROSTOMY CONTINUES TO PUT OUT CLOUDY URINE. DRESSINGS ON BOTTOM/HIPS REMAINED IN PLACE. HE ALSO NEEDS MORE ASSISTANCE AT HOME IF HE IS NOT ABLE TO USE THE SHOULDER THAT WELL. NO OTHER CHANGES TO REPORT, CALL LIGHT IN REACH.
[2020-08-28] MEDS ORDERED: BENZ100A PO (12:11)
[2020-08-28] MEDS ORDERED: Guaifenesin Wit10 ML PO (12:13)
[2020-08-28] MEDS ORDERED: DOCU100 PO (12:13)
[2020-08-28] MEDS ORDERED: LIDO700A20 TOP (12:14)
[2020-08-28] MEDS ORDERED: DULCOLAX400 MG/5 M PO (12:17)
[2020-08-28] MEDS ORDERED: MIRT30ST PO (12:19)
[2020-08-28] MEDS ORDERED: Percocet 10-321 EACH PO (12:20)
[2020-08-28] MEDS ORDERED: PANT20 PO (12:21)
[2020-08-28] MEDS ORDERED: SENN187 PO (12:22)
--- NOTE | 2020-08-28 13:19 | NUR ---
DISCHARGE NOTE THIS RN REMOVED PT IVS X2. THIS RN ASSISTED MANAGER OF WAREHOUSE'S WITH DRESSING PT IN HOME CLOTHING AND ASSISTING PT INTO HOME WHEELCHAIR. THIS RN REVIEWED PT DC INSTRUCTIONS AND MEDICATIONS WITH PT WHO VERBALIZED AN UNDERSTANDING. PT FIANCE PRESENT IN ROOM FOR DC. THIS RN TOOK DISCHARGE PHOTOS OF WOUNDS WITH PT PERMISSION. SEE CHART. PT LEFT THE BUILDING WITH FIANCE IN WHEELCHAIR WITH BELONGINGS PRESENT AT APPROXIMATELY 1305.
== END 2020-08-28 12:55 | disposition home or self-care (01) | DRG 853 ==
LOC: ER 13:53 → MEDS 13:54
PROVIDERS: Emergency Medicine; Internal Medicine; Internal Medicine Critical Care Medicine; Physician Assistant; ADMIT Internal Medicine
PROC: 0BBG8ZX Excision of Left Upper Lung Lobe, Via Natural or Artificial Opening Endoscopic, Diagnostic (ICD-10-PCS; 2020-08-24)
PROC: 30233N1 Transfusion of Nonautologous Red Blood Cells into Peripheral Vein, Percutaneous Approach (ICD-10-PCS; principal; 2020-08-24 13:30)
DX: A40.8 Other streptococcal sepsis (principal); J18.9 Pneumonia, unspecified organism; C34.92 Malignant neoplasm of unspecified part of left bronchus or lung; C79.51 Secondary malignant neoplasm of bone; N39.0 Urinary tract infection, site not specified; Z90.5 Acquired absence of kidney; Z20.828 Contact with and (suspected) exposure to other viral communicable diseases; Q05.9 Spina bifida, unspecified; E86.0 Dehydration; I10 Essential (primary) hypertension; E78.5 Hyperlipidemia, unspecified; Z93.6 Other artificial openings of urinary tract status; F17.210 Nicotine dependence, cigarettes, uncomplicated; L89.159 Pressure ulcer of sacral region, unspecified stage
CPT/HCPCS: 0241U; 36415; 36430; 71046; 71260; 80048; 80053; 80069; 81001; 82550; 82728; 83540; 83550; 83690; 83735; 83880; 84484; 85025; 85027; 85379; 86850; 86900; 86901; 86923; 87077; 87086; 87186; 88305; 88341; 88342; 93005; 93010; 94640; 94760; 96365; 96368; 96375; 96376; 99285-25; A9270; A9270-GY; C9113; G0378; J0171; J0696; J1956; J2250; J2550; J2920; J3010; J3360; J7030; J7050; J7120; P9016; Q0163; Q9967

== ENCOUNTER 2020-09-29 09:59 | Inpatient (IN) | payer OTHER ==
[~2020-09-29] VITALS: Ht 162.6 cm; Wt 59.9 kg
[~2020-09-29 09:59] MED LIST changes: +ALBU2.5V5 NEB; +DOCU100 PO; +DULCOLAX400 MG/5 M PO; +Guaifenesin Wit10 ML PO; +LIDO700A20 TOP; +MIRT30ST PO; +OXYC5 PO; +PANT20 PO; +Percocet 10-321 EACH PO; +SENN187 PO; +TIOT18 INH
[2020-09-29] MEDS ORDERED: VIRTUSSIN PO (10:24)
[2020-09-29 10:47] LABS: BASOPHILS ABSOLUTE AUTO 0.04 K/mm3 (0.00-0.23); BASOPHILS PERCENT AUTO 0 % (0-2); EOSINOPHILS ABSOLUTE AUTO 0.05 K/mm3 (0.00-0.68); EOSINOPHILS PERCENT AUTO 0 % (0-6); Hematocrit 21.3 % (37.0-53.0); Hemoglobin 6.3 g/dL (13.5-17.5); IMMATURE GRAN ABSOLUTE AUTO 1.06 K/mm3 (0.00-0.10); IMMATURE GRAN PERCENT AUTO 6 % (0-1); LYMPHOCYTES ABSOLUTE AUTO 3.47 K/mm3 (0.84-5.20); LYMPHOCYTES PERCENT AUTO 19 % (21-46); MONOCYTES ABSOLUTE AUTO 0.67 K/mm3 (0.16-1.47); MONOCYTES PERCENT AUTO 4 % (4-13); Mean Corpuscular HGB 29.9 pg (26.0-34.0); Mean Corpuscular HGB Conc 29.6 g/dL (31.5-36.5); Mean Corpuscular Volume 101 fL (80-100); Mean Platelet Volume 11.8 fL (9.1-12.4); NEUTROPHILS ABSOLUTE AUTO 13.45 K/mm3 (1.96-9.15); NEUTROPHILS PERCENT AUTO 72 % (41-73); NRBC ABSOLUTE 0.28 K/mm3 (0.00-0.02); NRBC Auto 1.5 /100 WBC (0.0-0.2); Platelet Count 247 K/mm3 (150-400); RDW Coefficient Variation 23.2 % (11.7-14.2); RDW Standard Deviation 81.2 fL (35.1-46.3); Red Blood Cell Count 2.11 M/mm3 (4.30-5.90); White Blood Cell Count 18.74 K/mm3 (4.00-11.30)
[2020-09-29 11:10] LABS: Magnesium, Blood 2.8 mg/dL (1.6-2.4)
[2020-09-29 11:11] LABS: Albumin, Blood 2.2 g/dL (3.4-5.0); Albumin/Globulin Ratio 0.4 (0.8-1.8); Bilirubin, Total 1.4 mg/dL (0.1-1.0); Bun/Creatinine Ratio 48.9 (12.0-20.0); Calcium, Blood 9.1 mg/dL (8.5-10.1); Creatinine, Blood 1.33 mg/dL (0.60-1.20); Globulin, Blood 5.3 g/dL (2.2-4.0); Potassium, Blood 4.1 mmol/L (3.5-5.5); Total Protein, Blood 7.5 g/dL (6.4-8.2)
[2020-09-29 11:54] LABS: Influenza A, PCR Negative (NEGATIVE); Influenza B, PCR Negative (NEGATIVE); Resp Syncytial Virus, PCR Negative (NEGATIVE); SARS-Cov-2 (COVID-19) PCR, MMC Negative (NEGATIVE)
[2020-09-29] MEDS ORDERED: TIOT18 INH (13:46)
[2020-09-29] MEDS ORDERED: PANTOPRAZOLE SO40 M2 PO (13:46)
[2020-09-29] MEDS ORDERED: ALBU3IS INH (13:47)
[2020-09-29 15:17] LABS: Source, Urine Voided
[2020-09-29 15:27] LABS: Appearance, Urine Turbid (Clear); Bilirubin, Urine Neg (Neg); Blood, Urine 5+ (Neg); Color, Urine Amber (P-Yellow); Glucose Qualitative, Urine Neg (Neg); Ketones, Urine 2+ (Neg); Leukocyte Esterase, Urine 3+ (Neg); Nitrite, Urine Neg (Neg); Protein, Urine 3+ (Neg); Specific Gravity, Urine 1.015 (1.003-1.022); Urobilinogen, Urine NORM (Normal)
[2020-09-29 15:43] LABS: Mucus Heavy (0-Heavy)
[2020-09-29 15:44] LABS: Bacteria Mod /hpf; Squamous Epithelial Cells Not Seen /hpf (Few); Triple Phosphate Crystals Few /hpf
--- NOTE | 2020-09-29 17:37 | NUR ---
PT ARRIVED TO THE UNIT AT 1550. PT ORIENTED TO THE ROOM PROVIDED WATER AND COFFEE. HE IS WAS RECIEVING BLOOD WHICH WAS COMPLEATED AT 1650. HIS LUNGS SOUND ARE COURSE. HE HAS A UROSTOMY AND IT IS DRAINING. HE HAS THREE LARGE WOUNDS ON HIS BOTTOM. PT HAD A BM AND WAS CLEANED UP AND MEPLEX WAS PLACED ON THE WOUNDS, PICTURES IN THE CHART.
--- NOTE | 2020-09-29 19:45 | NUR ---
PT C/O GENERALIZED PAIN 07/07 WITH NO RELIEF FORM MS IR 15MG; DILAUDID 1MG IVP, Q4P, PRN PAIN PER DR HOLLIS.
--- NOTE | 2020-09-30 02:39 | NUR ---
09/29/201999 PT HAS MUCH TROUBLE GETTING COMFORTABLE WITH PT REPOSITIONED MULTIPLE TIMES BY NURSING STAFF ALREADY; UROSTOMY DRAINING CLOUDY YELLOW FLUID; ALERT AND ORIENTED X 4; BED ALARM APPLIED FOR SAFETY.
[2020-09-30 05:02] LABS: Hematocrit 18.2 % (37.0-53.0); Mean Corpuscular HGB 29.1 pg (26.0-34.0); Mean Corpuscular HGB Conc 30.2 g/dL (31.5-36.5); Mean Platelet Volume 12.1 fL (9.1-12.4); NRBC ABSOLUTE 0.24 K/mm3 (0.00-0.02); NRBC Auto 1.7 /100 WBC (0.0-0.2); Platelet Count 160 K/mm3 (150-400); RDW Coefficient Variation 23.2 % (11.7-14.2); RDW Standard Deviation 76.6 fL (35.1-46.3); Red Blood Cell Count 1.89 M/mm3 (4.30-5.90); White Blood Cell Count 14.47 K/mm3 (4.00-11.30)
[2020-09-30 05:22] LABS: Mean Corpuscular Volume 96 fL (80-100)
[2020-09-30 05:25] LABS: Hemoglobin 5.5 g/dL (13.5-17.5)
[2020-09-30 05:33] LABS: BAND PERCENT MAN 6 % (0-8); BASOPHILS PERCENT MAN 0 % (0-2); EOSINOPHILS ABSOLUTE MAN 0.14 K/mm3 (0.00-0.68); EOSINOPHILS PERCENT MAN 1 % (0-6); LYMPHOCYTES ABSOLUTE MAN 1.88 K/mm3 (0.84-5.20); LYMPHOCYTES PERCENT MAN 13 % (21-46); MONOCYTES ABSOLUTE MAN 1.01 K/mm3 (0.16-1.47); MONOCYTES PERCENT MAN 7 % (4-13); SEG NEUTROPHILS PERCENT MAN 68 % (41-73); TOTAL CELLS COUNTED 100
[2020-09-30 05:34] LABS: MYELOCYTE ABSOLUTE MAN 0.72 K/mm3 (0.00-0.00); MYELOCYTE PERCENT MAN 5 % (0-0)
[2020-09-30 05:40] LABS: Alanine Aminotransfer (ALT/SGP 6 U/L (12-78); Albumin, Blood 1.6 g/dL (3.4-5.0); Albumin/Globulin Ratio 0.4 (0.8-1.8); Alk Phos 218 U/L (50-136); Anion Gap 9 mmol/L (6-16); Aspartate Aminotrans (AST/SGOT 14 U/L (12-37); Bilirubin, Total 1.1 mg/dL (0.1-1.0); Blood Urea Nitrogen 52 mg/dL (8-24); Bun/Creatinine Ratio 43.3 (12.0-20.0); CO2, Blood 21 mmol/L (21-32); Calcium, Blood 8.8 mg/dL (8.5-10.1); Chloride, Blood 108 mmol/L (98-108); Glomerular Filtration Rate >60 (60-); Glucose, Blood 106 mg/dL (70-99); Potassium, Blood 3.9 mmol/L (3.5-5.5); Sodium, Blood 138 mmol/L (136-145); Total Protein, Blood 5.6 g/dL (6.4-8.2)
--- NOTE | 2020-09-30 07:41 | NUR ---
SHIFT SUMMARY: 55 Y/O MALE HAD VERY RESTLESS NIGHT ALL SHIFT REQUIRING NURSING STAFF TO REPOSITION FREQUENTLY TO VARIOUS POSITIONS WITH MINIMAL RELIEF; PT C/O GENERALIZED PAIN RATED 10/10 AND WAS GIVEN DILAUDID 1MG IVP X 2 WITH SLIGHT RELIEF FELT; PT WOULD BENEFIT FROM AIR MATTRESS BED IF AVAILABLE FOR COMFORT; PTS HAS NUMEROUS WOUNDS TO COCCYX AND BILATERAL BUTTOCKS; PTS HG THIS AM WAS 5.5 WITH ONE UNIT PRBC TO BE TRANSFUSED; PT ALERT AND ORIENTED X 4; BED ALARM APPLIED FOR SAFETY, BED LOW POSITION WITH CALL LIGHT AT SIDE.
--- NOTE | 2020-09-30 10:59 | NUR ---
late entry: pt seen yesterday in ER, plan was to admit review of pt with physician awaiting oncology consult.
[2020-09-30 14:22] LABS: Hematocrit 21.1 % (37.0-53.0); Hemoglobin 6.7 g/dL (13.5-17.5)
--- NOTE | 2020-09-30 15:12 | NUR ---
PT WANTS REPOSITIONED EVERY 30 MINS. HE GOES FROM LEFT SIDE TO SITTING UP STRAIGHT AND BACK TO LEFT SIDE.
--- NOTE | 2020-09-30 17:38 | NUR ---
SHIFT SUMMARY- PT IS A/O, PLESANT AND COOPERATIVE. HE APPETITE HAS BEEN GOOD, WAS NPO FOR LUNCH DUE TO CT SCAN. WE WENT AT [address] OF THE HEAD AND ABDOMEN. HE WAS PREMEDICATED. AQUIRED AN AIR BED FOR HIM. HIS GIRLFRIEND WAS AT BEDSIDE THIS AFTERNOON. HE IS RECIEVING PAIN MEDICATION PRN. HE WAS REPOSITIONED FREQUENTLY DURING THIS SHIFT. HIS BED IS IN THE LOW POSITION AND CALL LIGHT IS WITHIN REACH.
[2020-10-01 04:33] LABS: Hematocrit 22.1 % (37.0-53.0); Hemoglobin 7.1 g/dL (13.5-17.5); Mean Corpuscular HGB 30.1 pg (26.0-34.0); Mean Corpuscular HGB Conc 32.1 g/dL (31.5-36.5); Mean Corpuscular Volume 94 fL (80-100); Mean Platelet Volume 11.6 fL (9.1-12.4); NRBC ABSOLUTE 0.18 K/mm3 (0.00-0.02); NRBC Auto 1.2 /100 WBC (0.0-0.2); Platelet Count 148 K/mm3 (150-400); RDW Coefficient Variation 22.4 % (11.7-14.2); RDW Standard Deviation 71.7 fL (35.1-46.3); Red Blood Cell Count 2.36 M/mm3 (4.30-5.90); White Blood Cell Count 15.56 K/mm3 (4.00-11.30)
[2020-10-01 04:51] LABS: Alanine Aminotransfer (ALT/SGP 7 U/L (12-78); Albumin, Blood 1.6 g/dL (3.4-5.0); Albumin/Globulin Ratio 0.4 (0.8-1.8); Alk Phos 211 U/L (50-136); Anion Gap 9 mmol/L (6-16); Aspartate Aminotrans (AST/SGOT 17 U/L (12-37); Bilirubin, Total 1.2 mg/dL (0.1-1.0); Blood Urea Nitrogen 45 mg/dL (8-24); Bun/Creatinine Ratio 44.6 (12.0-20.0); CO2, Blood 17 mmol/L (21-32); Calcium, Blood 8.4 mg/dL (8.5-10.1); Chloride, Blood 114 mmol/L (98-108); Creatinine, Blood 1.01 mg/dL (0.60-1.20); Globulin, Blood 4.1 g/dL (2.2-4.0); Glomerular Filtration Rate >60 (60-); Glucose, Blood 150 mg/dL (70-99); Potassium, Blood 4.4 mmol/L (3.5-5.5); Sodium, Blood 140 mmol/L (136-145); Total Protein, Blood 5.7 g/dL (6.4-8.2)
--- NOTE | 2020-10-01 05:14 | NUR ---
SHIFT SUMMARY PT HAS RESTED OFF AND ON THIS SHIFT, FINDING IT DIFFICULT TO GET COMFORTABLE IN THE SPECIALTY BED. PT HAS BEEN REPOSITIONED MULTIPLE TIMES THIS SHIFT. PT IS VERY PAINFUL WITH MOVEMENT AND REPORTS PAIN MOSTLY IN HIS SHOULDERS AND BACK. MEDICATED FOR PAIN PRN PER ORDERS AND REPOSITION PRN FOR COMFORT. PT IS CONSTIPATED AND HAS VERY HARD STOOL. PT REFUSED HIS STOOL SOFTNERS, AND REPORTS THAT IT WILL GIVE HIM DIARRHEA. PT ENCOURAGED TO TAKE THEM, BUT WILL MORE THAN LIKELY CONTINUE TO REFUSE. SACRAL DRESSINGS CHANGED X1 THIS SHIFT. DR. RODRIGUEZ HAS BEEN MADE AWARE OF PT SACRAL WOUNDS BY ANNABELLE RN. WOUNDS ARE COVERED WITH MEPILEX DRESSINGS, DR. RODRIGUEZ OK WITH THIS WITH NO ADDITIONAL ORDERS GIVEN. PT H&H TRENDING UPWARD. HGB 7.1 UP FROM 6.7 AFTER RECEIVING 2 UNITS OF PRBC'S YESTERDAY. PT HAS ADEWAUTE URINE OUTPUT, BUT URINE IS VERY FOUL SMELLING. PT IS FLAT AND WITHDRAWN BUT COOPERATIVE WITH CARE. BED IN LOWEST POSITON, CALL LIGHT WITHIN REACH.
[2020-10-01 05:26] LABS: BAND PERCENT MAN 10 % (0-8); BASOPHILS PERCENT MAN 0 % (0-2); EOSINOPHILS PERCENT MAN 0 % (0-6); LYMPHOCYTES ABSOLUTE MAN 2.33 K/mm3 (0.84-5.20); LYMPHOCYTES PERCENT MAN 15 % (21-46); METAMYELOCYTE ABSOLUTE MAN 0.62 K/mm3 (0.00-0.00); METAMYELOCYTE PERCENT MAN 4 % (0-0); MONOCYTES ABSOLUTE MAN 0.31 K/mm3 (0.16-1.47); MONOCYTES PERCENT MAN 2 % (4-13); NEUTROPHILS ABSOLUTE MAN 12.29 K/mm3 (1.96-9.15); SEG NEUTROPHILS PERCENT MAN 69 % (41-73); TOTAL CELLS COUNTED 100
--- NOTE | 2020-10-02 01:56 | NUR ---
CHANGED PT'S DRESSING ON BOTTOM X 4. PT TOLERATED WELL. PT ALSO CHANGED AND REFLOATED PER PT REQUEST ON POSITIONING. REQUESTS PAIN MEDICATION WHEN IT IS TIME UNLESS HE IS ASLEEP THEN HE WOULD LIKE TO BE LEFT ALONE. PRIMARY RN IS AWARE. DENIES NEED FOR ANYTHING ELSE AT THIS TIME. CALL LIGHT IS IN REACH.
[2020-10-02 04:46] LABS: BASOPHILS ABSOLUTE AUTO 0.02 K/mm3 (0.00-0.23); BASOPHILS PERCENT AUTO 0 % (0-2); EOSINOPHILS ABSOLUTE AUTO 0.01 K/mm3 (0.00-0.68); EOSINOPHILS PERCENT AUTO 0 % (0-6); Hematocrit 22.4 % (37.0-53.0); Hemoglobin 6.8 g/dL (13.5-17.5); IMMATURE GRAN PERCENT AUTO 8 % (0-1); LYMPHOCYTES ABSOLUTE AUTO 2.26 K/mm3 (0.84-5.20); LYMPHOCYTES PERCENT AUTO 14 % (21-46); MONOCYTES ABSOLUTE AUTO 0.52 K/mm3 (0.16-1.47); MONOCYTES PERCENT AUTO 3 % (4-13); Mean Corpuscular HGB 29.4 pg (26.0-34.0); Mean Corpuscular HGB Conc 30.4 g/dL (31.5-36.5); Mean Corpuscular Volume 97 fL (80-100); Mean Platelet Volume 12.4 fL (9.1-12.4); NEUTROPHILS ABSOLUTE AUTO 11.68 K/mm3 (1.96-9.15); NEUTROPHILS PERCENT AUTO 75 % (41-73); NRBC ABSOLUTE 0.17 K/mm3 (0.00-0.02); NRBC Auto 1.1 /100 WBC (0.0-0.2); Platelet Count 149 K/mm3 (150-400); RDW Coefficient Variation 22.7 % (11.7-14.2); Red Blood Cell Count 2.31 M/mm3 (4.30-5.90); White Blood Cell Count 15.69 K/mm3 (4.00-11.30)
[2020-10-02 05:07] LABS: Anion Gap 7 mmol/L (6-16); Blood Urea Nitrogen 56 mg/dL (8-24); Bun/Creatinine Ratio 47.9 (12.0-20.0); CO2, Blood 19 mmol/L (21-32); Calcium, Blood 8.4 mg/dL (8.5-10.1); Chloride, Blood 112 mmol/L (98-108); Creatinine, Blood 1.17 mg/dL (0.60-1.20); Glomerular Filtration Rate >60 (60-); Glucose, Blood 137 mg/dL (70-99); Potassium, Blood 4.6 mmol/L (3.5-5.5); Sodium, Blood 138 mmol/L (136-145)
--- NOTE | 2020-10-02 05:26 | NUR ---
SHIFT SUMMARY ADMITTED FOR METASTATIC LUNG CANCER/PNEUMONIA. FULL CODE. IV ANTIBIOTICS ARE SCHEDULED. IV CHEMOTHERAPY BEGAN ON PREVIOUS SHIFT. TELEMETRY: NSR @ 96 BPM. HE DOES REFUSE REPOSITIONING AT TIMES. HE STATES HIS PAIN CONTROL REGIMEN IS INADEQUATE. CHANGES WERE MADE TO HIS PAIN MEDS ON A PREVIOUS SHIFT. UROSTOMY IS IN PLACE AND DRAINING. PRESSURE ULCERS ON EACH BUTTOCK, ONE UNSTAGEABLE ULCER ON COCCYX W/ESCHAR. HE IS WHEELCHAIR BOUND AT BASELINE. HE IS ON RA. ANEMIA HAS BEEN A PROBLEM THIS ADMIT. HE DOES LIVE ALONE. DR JUAREZ IS ONCOLOGY CONSULT
[2020-10-02 05:30] LABS: BAND PERCENT MAN 8 % (0-8); BASOPHILS PERCENT MAN 0 % (0-2); EOSINOPHILS PERCENT MAN 0 % (0-6); LYMPHOCYTES ABSOLUTE MAN 1.09 K/mm3 (0.84-5.20); LYMPHOCYTES PERCENT MAN 7 % (21-46); METAMYELOCYTE ABSOLUTE MAN 0.15 K/mm3 (0.00-0.00); METAMYELOCYTE PERCENT MAN 1 % (0-0); MONOCYTES ABSOLUTE MAN 0.62 K/mm3 (0.16-1.47); MONOCYTES PERCENT MAN 4 % (4-13); SEG NEUTROPHILS PERCENT MAN 80 % (41-73); TOTAL CELLS COUNTED 100
--- NOTE | 2020-10-02 11:50 | NUR ---
FENTANYL PATCH INCREASED FROM 50MCG TO 100MCG. 50MCG PATCH REMOVED AND REPLACED WITH TWO 5OMCG PATCHES. PT Hgb 6.8 THIS AM. PRBC STARTED, TRANSFUSING WITHOUT DIFFICULTY, WILL MONITOR.
--- NOTE | 2020-10-02 14:40 | NUR ---
PRBC COMPLETE, NO S/S OF REACTION, PT TOLERATED WELL. WILL CONTINUE TO MONITOR
--- NOTE | 2020-10-03 05:36 | NUR ---
R DEVELOPER SUMMARY NO ACUTE CHANGES THIS SHIFT. PT AAOX4 AND HAS BEEN FAIRLY PLEASANT. MEDICATING FOR PAIN Q4H WITH PO DILAUDID. PT STATES IT DOES A BIT BETTER THAN THE PREVIOUS DOSE OF IV DILAUDID BUT STATES HE IS STILL ALWAYS IN PAIN. PT HAS BEEN ABLE TO SLEEP FOR A FEW HOURS AT A TIME THIS MORNING. ASSISTED PT WITH FREQUENT REPOSITIONING AND EMPTYING OF HIS UROSTOMY. VSS, WILL CONTINUE TO MONITOR.
[2020-10-03 07:18] LABS: BASOPHILS ABSOLUTE AUTO 0.02 K/mm3 (0.00-0.23); BASOPHILS PERCENT AUTO 0 % (0-2); EOSINOPHILS PERCENT AUTO 0 % (0-6); Hematocrit 27.7 % (37.0-53.0); Hemoglobin 8.7 g/dL (13.5-17.5); IMMATURE GRAN ABSOLUTE AUTO 0.49 K/mm3 (0.00-0.10); IMMATURE GRAN PERCENT AUTO 3 % (0-1); LYMPHOCYTES ABSOLUTE AUTO 2.78 K/mm3 (0.84-5.20); LYMPHOCYTES PERCENT AUTO 19 % (21-46); MONOCYTES ABSOLUTE AUTO 0.23 K/mm3 (0.16-1.47); MONOCYTES PERCENT AUTO 2 % (4-13); Mean Corpuscular HGB 29.7 pg (26.0-34.0); Mean Corpuscular HGB Conc 31.4 g/dL (31.5-36.5); Mean Corpuscular Volume 95 fL (80-100); Mean Platelet Volume 12.4 fL (9.1-12.4); NEUTROPHILS ABSOLUTE AUTO 11.31 K/mm3 (1.96-9.15); NEUTROPHILS PERCENT AUTO 76 % (41-73); NRBC Auto 0.7 /100 WBC (0.0-0.2); Platelet Count 128 K/mm3 (150-400); RDW Standard Deviation 70.4 fL (35.1-46.3); Red Blood Cell Count 2.93 M/mm3 (4.30-5.90); White Blood Cell Count 14.83 K/mm3 (4.00-11.30)
[2020-10-03 07:38] LABS: Alanine Aminotransfer (ALT/SGP 9 U/L (12-78); Albumin, Blood 1.8 g/dL (3.4-5.0); Albumin/Globulin Ratio 0.5 (0.8-1.8); Alk Phos 210 U/L (50-136); Anion Gap 9 mmol/L (6-16); Aspartate Aminotrans (AST/SGOT 20 U/L (12-37); Bilirubin, Total 0.9 mg/dL (0.1-1.0); Blood Urea Nitrogen 63 mg/dL (8-24); Bun/Creatinine Ratio 53.8 (12.0-20.0); CO2, Blood 18 mmol/L (21-32); Chloride, Blood 113 mmol/L (98-108); Creatinine, Blood 1.17 mg/dL (0.60-1.20); Globulin, Blood 3.8 g/dL (2.2-4.0); Glomerular Filtration Rate >60 (60-); Glucose, Blood 96 mg/dL (70-99); Potassium, Blood 4.6 mmol/L (3.5-5.5); Sodium, Blood 140 mmol/L (136-145); Total Protein, Blood 5.6 g/dL (6.4-8.2)
--- NOTE | 2020-10-03 12:25 | NUR ---
Received 2nd Palliative Care consult and reviewed chart. Pt resting in bed upon arrival. Pt reports 7/10 pain. Pt reports new breakthrough pain medication has helped with reducing pain. Discussed plan to start long acting pain medication as well. Offered therapeutic listening as Pt expresses concerns regarding his options. Pt expresses concerns regarding cost of treatment. He states "I want to live as long as possible but I want my pain better controled". Pt reports having conversation with Dr Scott and treatment could pro long life anywhere from 4 months to 2 years. Pt reports feeling confused on options. This RN suggested one step at a time and to focus on pain management and will approach cost of treatment down the road. Suggested potential available henry through drug [employer]. Ended visit to allow Pt to rest. Information obtained from Dr Scott's office regarding plan to speak with Pt regarding financial options. Palliative Care will remain available for supportive visits and symptom management.
--- NOTE | 2020-10-03 16:16 | NUR ---
PATIENT A/OX4, CHAIRBOUND AT BASELINE. TURNING Q2 HOURS. DRESSINGS TO BUTTOCKS REMAIN C/D/I. PATIENT CHANGED TO DNR STATUS TODAY, BRACELET IN PLACE. PAIN BETTER CONTROLLED WITH MS CONTIN AND IV DILAUDID. FENTANYL PATCH D/C'D. VERY POOR PO INTAKE, DENIES ANY NAUSEA BUT REPORTS "NO APPETITE." LEVAQUIN CHANGED TO PO. CHEMO PRECAUTIONS ENDED AT 1600. UROSTOMY BAG CHANGED TODAY, ADEQUATE U/O. PATIENT CALLS APPROPRIATELY FOR ASSISTANCE.
--- NOTE | 2020-10-04 05:37 | NUR ---
SHIFT SUMMARY- PT. PAINFUL LAST NIGHT, MEDICATED PER EMAR WITH MINIMAL RELIEF. REPOSITIONED FOR COMFORT AND PRN. ASLEEP MOST OF THE NIGHT, NO APPARENT DISTRESS NOTED. DSG TO COCCYX AND LT GLUTE WOUNDS CHANGED. DENIED ANY OTHER NEEDS THIS SHIFT. CALL LIGHT WITHIN REACH AND SIDE RAILS UPX2. WILL CONT TO MONITOR.
[2020-10-04 10:12] LABS: BASOPHILS ABSOLUTE AUTO 0.01 K/mm3 (0.00-0.23); BASOPHILS PERCENT AUTO 0 % (0-2); EOSINOPHILS ABSOLUTE AUTO 0.01 K/mm3 (0.00-0.68); EOSINOPHILS PERCENT AUTO 0 % (0-6); Hematocrit 29.4 % (37.0-53.0); Hemoglobin 9.3 g/dL (13.5-17.5); IMMATURE GRAN ABSOLUTE AUTO 0.14 K/mm3 (0.00-0.10); IMMATURE GRAN PERCENT AUTO 1 % (0-1); LYMPHOCYTES ABSOLUTE AUTO 1.09 K/mm3 (0.84-5.20); LYMPHOCYTES PERCENT AUTO 7 % (21-46); MONOCYTES ABSOLUTE AUTO 0.05 K/mm3 (0.16-1.47); MONOCYTES PERCENT AUTO 0 % (4-13); Mean Corpuscular HGB 30.1 pg (26.0-34.0); Mean Corpuscular HGB Conc 31.6 g/dL (31.5-36.5); Mean Corpuscular Volume 95 fL (80-100); Mean Platelet Volume 12.3 fL (9.1-12.4); NEUTROPHILS ABSOLUTE AUTO 14.52 K/mm3 (1.96-9.15); NEUTROPHILS PERCENT AUTO 92 % (41-73); NRBC ABSOLUTE 0.04 K/mm3 (0.00-0.02); NRBC Auto 0.3 /100 WBC (0.0-0.2); Platelet Count 111 K/mm3 (150-400); RDW Coefficient Variation 21.3 % (11.7-14.2); RDW Standard Deviation 71.5 fL (35.1-46.3); Red Blood Cell Count 3.09 M/mm3 (4.30-5.90); White Blood Cell Count 15.82 K/mm3 (4.00-11.30)
[2020-10-04 10:30] LABS: Alanine Aminotransfer (ALT/SGP 9 U/L (12-78); Albumin, Blood 2.1 g/dL (3.4-5.0); Albumin/Globulin Ratio 0.5 (0.8-1.8); Alk Phos 223 U/L (50-136); Anion Gap 13 mmol/L (6-16); Aspartate Aminotrans (AST/SGOT 20 U/L (12-37); Bilirubin, Total 1.3 mg/dL (0.1-1.0); Blood Urea Nitrogen 74 mg/dL (8-24); Bun/Creatinine Ratio 60.7 (12.0-20.0); CO2, Blood 13 mmol/L (21-32); Calcium, Blood 9.5 mg/dL (8.5-10.1); Chloride, Blood 111 mmol/L (98-108); Creatinine, Blood 1.22 mg/dL (0.60-1.20); Globulin, Blood 3.9 g/dL (2.2-4.0); Glomerular Filtration Rate >60 (60-); Glucose, Blood 102 mg/dL (70-99); Potassium, Blood 5.2 mmol/L (3.5-5.5); Sodium, Blood 137 mmol/L (136-145)
--- NOTE | 2020-10-04 14:22 | NUR ---
Spoke with Dr Remy earlier this AM and discussed case. Pt resting in bed upon arrival. Pt reports 06/07. Pt is agreeable with pain regimen. Engaged in therapeutic listening as Pt expresses concerns and states he is geting conflicting information. Provided recap of plan of care. Assisted with clearing up information. Discussed the importance of exploring values to assist with decision on goals of care. Pt reports his immediate goal is better pain management. Discussed Dr Remy's plan for increase in long acting pain medication. Pt expresses appreciation of visit and reports no other concerns at this time. Palliative Care will remain available.
--- NOTE | 2020-10-04 16:58 | NUR ---
Spiritual care note: Provided prayer and parliamentary counsel to Britany and his fiance at bedside. Britany complained of unrelenting pain and admitted he was fearful of dying. Finace tearful, but clearly loving and devoted. Informed Shai in palliative care about Britany's pain. [employer] will remain available.
--- NOTE | 2020-10-04 17:31 | NUR ---
SHIFT SUMMARY PT MEDICATED FOR PAIN X5 THIS SHIFT PER EMAR FOR CHEST/NECK PAIN. PT IS AOX4 AND SLIGHTLY IRRITABLE AT TIMES. PT DENIES N/V, SOB. PT HAS BEEN ON BEDREST T/O SHIFT. UROSTOMY CONTINUES TO DRAIN RED OUTPUT. PT'S FIANCE VISITED THIS EVENING. PT HAS REQUIRED FREQUENT REPOSITIONING THIS SHIFT. PT IS IN BED, CALL LIGHT IN REACH, BED IN LOW POSITION.
--- NOTE | 2020-10-04 21:20 | NUR ---
PT REFUSED REPOSITIONING, NURSE NOTIFIED
--- NOTE | 2020-10-05 04:40 | NUR ---
SHIFT SUMMARY- PT. PLEASANT THIS SHIFT. MEDICATED FOR PAIN DURING THE NIGHT, PT. STATES PAIN IS PERSISTENT. APPEARED TO HAVE SLEPT WELL LAST NIGHT. REPOSITIONED FOR COMFORT AND PRN. ALSO FREQUENT UROSTOMY EMPTYING, CONTS TO HAVE RED OUTPUT. CALL LIGHT WITHIN REACH AND SIDE RAILS UPX2. WILL CONT TO MONITOR.
--- NOTE | 2020-10-05 11:06 | NUR ---
Visited with Britany this morning. He reports that he is "miserable." He c/o back, neck and shoulder pain 8-06/07. He is vomiting small old dark blood emesis [address] Remy notified of the bloody emesis. He c/o "heartburn" and nausea. He reports he is unable to think about what the doctors have talked to him about because he is so uncomfortable at this time. He states he is confused and is unsure of what to do. Emotional support given. Will address his current symptoms to attempt to get him more comfortable. Pt is not capable of discussing any skilled nursing planning at this time. Spoke with nursing, Dr. Remy, and Jeana Jacobo, pharmacist. New orders rec'd for zofran, protonix and a dose change for the MS contin. Will monitor and plan to assist with this pt's symptoms and care planning.
--- NOTE | 2020-10-05 11:27 | NUR ---
Spoke with Britany and updated him on the new orders placed per Dr. Reym's request. Pt thanked this hand sign writer for the time spent on his symptom management. Will continue to monitor symptoms.
--- NOTE | 2020-10-05 15:53 | NUR ---
MICROCOMPUTER TECHNICIAN DOSE: CONFIRMED WITH DR. CORNEJO THE DOSING OF DILAUDID MICROCOMPUTER TECHNICIAN. DOSING IS HIGHER THAN MICROCOMPUTER TECHNICIAN PUMP LIMIT, SO OVERRIDE NEEDED TO ALLOW FOR ORDER DOSE. DR CORNEJO STATES PT IS TO RECEIVE ORDERED. PT EDUCATED TO ONLY PRESS BUTTON WHEN IN PAIN AND THAT THERE IS A CONTINUOUS DOSE INFUSING AROUND THE CLOCK. PT VERBALIZED UNDERSTANDING. CONT. BIOX ATTACHED TO PT.
--- NOTE | 2020-10-05 19:39 | NUR ---
sleepy but orintated to self, location and date, call light in reach, SOCIAL MEDIA MARKETING MANAGER cleared at shift change with cn, rm air, bsr shared with noc nurse and pt
--- NOTE | 2020-10-06 13:20 | NUR ---
Transition to comfort care: Requested by Dr. Remy and nursing to talk with pt about his advanced care planning wishes. His pain is better controlled today and he is open for a visit. Spent some time with Britany this afternoon. He reports his pain has improved to a 6/10, which he states is the most comfortable he has been in the last several weeks. He is able to take his long acting morphine and is using his dilaudid MOLDING ROOM SUPERVISOR for breakthrough pain. He states he had a conversation with Dr. Remy this morning and feels that he is ready to make the decision to transition to comfort care and focus on comfort. He tells this business writer that he has continued to get weaker and sicker and is tired of hurting. Discussed comfort care and what that would look like in the hospital. Britany states that he wants to focus on his comfort now. He states that Dr. Remy told him this morning that he have only a short time left to live if he continues to decline as he has been. Answered his questions. He declined having me call his sister, Radha to update her on his decision. He states he will talk to her about his choice when she visits on Thursday. Britany states he would like to have a PC nurse present for the conversation when he talks to his sister. Spoke with Dr. Remy and new orders placed to begin comfort care. Nursing updated. Will plan to have PC nurse working on Thursday follow up with pt when he talks with his sister. Did not discuss the option of going home with hospice today. Will need to see what type of support he would have at home prior to that discussion. If pt rapidly declines hospice at home may not even be an option. PC will continue to follow and assist with symptom management as needed.
--- NOTE | 2020-10-06 17:47 | NUR ---
PT IS RESTING IN BED. PT MAKES NO COMPLAINTS OF ANXIETY, PAIN OR SOB AT THIS TIME. PT WANTED FAMILY MEMBERS ADDED TO PAM AND NAMES PLACED ON BOARD. PT IS IN AND OUT OF CONFUSED STATE AND HAVING MILD VISUAL/H. PT STILL DRINKING FLUIDS, ALTHOUGH A LARGE DRINK TENDS TO MAKE HIM N/V. STAFF WILL CONT. TO MONITOR PT COMFORT, ANXIETY AND PAIN.
--- NOTE | 2020-10-07 04:05 | NUR ---
SHIFT SUMMARY ADMITTED FOR METASTATIC LUNG CANCER. DNR CODE. NOW COMFORT CARE. UROSTOMY IS IN PLACE, DRAINING SANGUINOUS URINE. PRESSURE ULCERS ON COCCYX. SUPERVISOR BOARDING PUMP W/PT CONTROLLED BUTTON FOR PAIN, WELL SCHEDULED PAIN MEDICATION. PT HAS INTERMITTENT CONFUSION. HE RESTED THROUGHOUT SHIFT. I HAVE READ PALLIATIVE CARE NOTES REGARDING THE PT'S WISHES.
--- NOTE | 2020-10-07 07:38 | NUR ---
ASSUMED CARE OF PT- BEDSIDE REPORT COMPLETED WITH NIGHT RN. PT HAS HAD CHANGES T/O THE NIGHT THIS MORNING HE IS NON RESPONSIVE, GASPING IRREGULAR RESPIRATIONS, AUDIBLE SECRETIONS; HOWEVER THE PT APPEARS TO BE RELAXED. PER REPORT HE OFTEN SLEEPS WITH HIS EYES OPEN. PT WAS PLACED ON COMFORT CARE, PER HIS OWN DECISION. PT WAS ADAMANT HE WANTED TO TELL HIS FAMILY HIMSELF IN PERSON. A FEW MINUTES AFTER REPORT AT 0659 PT STOPPED BREATHING, NO HEART SOUNDS AUDIBLE ON AUSCULTATION BY BOTH NIGHT AND DAY SHIFT RN. CALLED NIGHT SERVICE ORDER CLERK, CALLED DR CORNEJO, CALLED NURSING BENEFIT SPECIALIST JA. NURSING BENEFIT SPECIALIST WILL CALL THE PT FAMILY TO MAKE THE NOTIFICATIONS.
--- NOTE | 2020-10-07 15:45 | NUR ---
1540- PT WAS TAKEN BY [employer]INGS WERE CLEARLY LABELED FOR STORAGE. NURSING ASSISTANT CORPORATE CONTROLLER TO CONTACT FAMILY TO ARRANGE PICKUP. PICKUP PERFORMED BY KYLE ROBERSON OF [employer]. ALL LINES WERE DC'D PRIOR TO PT DISCHARGE.
== END 2020-10-07 06:59 | DRG 189 ==
LOC: ER 09:59 → MEDS 13:32
PROVIDERS: Emergency Medicine; Internal Medicine Hematology & Oncology; ADMIT Internal Medicine
PROC: 30233N1 Transfusion of Nonautologous Red Blood Cells into Peripheral Vein, Percutaneous Approach (ICD-10-PCS; principal; 2020-10-01)
DX: J96.91 Respiratory failure, unspecified with hypoxia (principal); J18.9 Pneumonia, unspecified organism; L89.324 Pressure ulcer of left buttock, stage 4; L89.314 Pressure ulcer of right buttock, stage 4; E43 Unspecified severe protein-calorie malnutrition; C34.12 Malignant neoplasm of upper lobe, left bronchus or lung; C79.51 Secondary malignant neoplasm of bone; C79.72 Secondary malignant neoplasm of left adrenal gland; E87.2 Acidosis; N17.9 Acute kidney failure, unspecified; J44.0 Chronic obstructive pulmonary disease with (acute) lower respiratory infection; Z68.1 Body mass index [BMI] 19.9 or less, adult; Z66 Do not resuscitate; Z51.5 Encounter for palliative care; Z20.822 Contact with and (suspected) exposure to COVID-19; D63.8 Anemia in other chronic diseases classified elsewhere; E78.5 Hyperlipidemia, unspecified; E86.0 Dehydration; F32.9 Major depressive disorder, single episode, unspecified; G62.9 Polyneuropathy, unspecified; I10 Essential (primary) hypertension; K21.9 Gastro-esophageal reflux disease without esophagitis; K70.30 Alcoholic cirrhosis of liver without ascites; Q05.9 Spina bifida, unspecified; Z90.5 Acquired absence of kidney; L89.150 Pressure ulcer of sacral region, unstageable; Z52.5 Cornea donor; G89.3 Neoplasm related pain (acute) (chronic); F17.210 Nicotine dependence, cigarettes, uncomplicated; Z99.3 Dependence on wheelchair; E88.09 Other disorders of plasma-protein metabolism, not elsewhere classified
CPT/HCPCS: 0241U; 36415; 36430; 70470; 71045; 71260; 74177; 80048; 80053; 81001; 83605; 83735; 84145; 85014; 85018; 85025; 86850; 86900; 86901; 86923; 87040; 87086; 93005; 93010; 94762; 96361-59; 96365-59; 96366-59; 96375-59; 99285-25; A9270; J1100; J1170; J1200; J1956; J2405; J2930; J3010; J3489; J7030; J7040; J7050; J9045; J9305; P9016; Q9967